=== PATIENT | male | born 1960 | race Caucasian/White ===

== ENCOUNTER 2019-08-28 09:45 | Outpatient (CLI) | payer BC ==
--- NOTE | 2019-08-28 10:56 | ULT ---
ULTRASOUND ABDOMEN LIMITED: (RIGHT UPPER QUADRANT) DATE: 08/28/2019 HISTORY: 59-year-old male with right upper quadrant abdominal pain. FINDINGS: Gallbladder: Not excessively distended. No evidence of gallstones or sludge. No pericholecystic fluid . Normal mural thickness. Common duct: 4 mm. Liver: Normal. Pancreas: Poorly visualized. Right kidney: No hydronephrosis. IMPRESSION: No sonographic evidence of cholelithiasis, acute cholecystitis, or biliary obstruction. CHONG Massey POS: JIN
== END 2019-08-28 09:46 | disposition home or self-care (01) ==
LOC: BICULT 09:45
PROVIDERS: ATTEND Internal Medicine
DX: R10.11 Right upper quadrant pain (principal)
CPT/HCPCS: 76705